=== PATIENT | male | born 1950 | race Caucasian/White ===

== ENCOUNTER 2017-11-28 13:47 | Emergency (ER) | payer MEDICARE, OTHER ==
[~2017-11-28] VITALS: Ht 175.3 cm; Wt 79.5 kg
[~2017-11-28 13:47] MED LIST: ADLT ASA LOW81 MG; ALLOPURINOL100 MG OR; AMIODARONE200 MG PO; AMOXICILLIN500 MG OR; AUGMENTIN875TAB OR; AUGMENTIN875TAB PO; CEFTIN500 MG PO; CIPRO500 MG PO; COREG6.25 MG PO; COUMADIN3 MG; DIGOXIN0.125 MG; FUROSEMIDE40 MG PO; HYDROCHLORO25 MG/TAB PO; LASIX20 MG PO; LIPITOR20 MG PO; LISINOPRIL20 MG PO; LOSARTAN POT50 MG PO; MEDDOSEPAK OR; METOPROL TAR50 MG PO; METOPROLOL TART50 MG OR; METOPROLOL50 M1 OR; PLAVIX75 MG PO; POTASSIUM CHLO10 MEQ PO; PRILOSEC20 MG/CAP; PROAIR HFA IN; QVAR40 MCG IN; SIMVASTATIN80 MG OR; SM ASPIRIN81 MG OR; SYMBICORT1 AE1 IN; TRAMADOL HCL50 MG PO; ZESTRIL/PRINIV2.5 MG PO; ZOCOR PO
[2017-11-28] MEDS ORDERED: BUMETANIDE1 MG PO (14:49)
[2017-11-28] MEDS ORDERED: LEVOTHYROXIN125 MCG PO (14:50)
[2017-11-28] MEDS ORDERED: METOPROL TAR25 MG PO (14:51)
[2017-11-28] MEDS ORDERED: ENTRESTO 24-261 TAB PO (14:51)
[2017-11-28 15:01] LABS: HEMOGLOBIN 15.3 g/dl (14.0-18.0); IMMATURE GRANULOCYTES 0.3 % (0.0-1.0); MEAN CELL VOLUME 97.1 fL CALC (80.0-100.0); MEAN CORPUSCULAR HGB 31.6 pG CALC (26.0-32.0); MEAN CORPUSCULAR HGB CONC 32.6 g/L CALC (32.0-36.0); NEUT# 4.48 thou/uL (1.82-7.42); RED BLOOD COUNT 4.84 mill/uL (4.70-6.10); RED CELL DISTRI WIDTH 14.6 % (11.5-15.5)
[2017-11-28 15:21] LABS: ALBUMIN 4.1 g/dL (3.2-5.0); ALKALINE PHOSPHATASE 60 u/l (38-126); ANION GAP 10 (6-22 (CALC)); BILIRUBIN, TOTAL 0.9 mg/dL (0.0-1.4); BUN 18 mg/dL (8-23); BUN/CREATININE RATIO 17 (12-20 (CALC)); CARBON DIOXIDE 34 mmol/l (22-30); CHLORIDE 100 mmol/l (95-108); GFR > 60 ML/MIN (>=60 (CALC)); GFR FOR AFR.AMER. > 60 ML/MIN (>=60 (CALC)); POTASSIUM 3.5 mmol/l (3.5-5.1); SGOT/AST 25 u/l (19-48); SGPT/ALT 29 u/l (11-66); SODIUM 139 mmol/l (137-146); TOTAL PROTEIN 7.7 g/dL (6.3-8.2)
[2017-11-28 16:16] VITALS: BP 111/61
== END 2017-11-28 16:20 | disposition home or self-care (01) ==
LOC: ED 13:47
PROVIDERS: Emergency Medicine
DX: I49.9 Cardiac arrhythmia, unspecified (principal); R42 Dizziness and giddiness; Z95.5 Presence of coronary angioplasty implant and graft; Z95.810 Presence of automatic (implantable) cardiac defibrillator; Z95.0 Presence of cardiac pacemaker; Y93.89 Activity, other specified; Y92.89 Other specified places as the place of occurrence of the external cause; I25.2 Old myocardial infarction; B19.20 Unspecified viral hepatitis C without hepatic coma; I48.91 Unspecified atrial fibrillation; I25.5 Ischemic cardiomyopathy; I10 Essential (primary) hypertension

== ENCOUNTER 2018-03-19 16:46 | Emergency (ER) | payer MEDICARE, OTHER ==
[~2018-03-19] VITALS: Ht 175.3 cm; Wt 84.0 kg
[~2018-03-19 16:46] MED LIST changes: +BUMETANIDE1 MG PO; +ENTRESTO 24-261 TAB PO; +LEVOTHYROXIN125 MCG PO; +METOPROL TAR25 MG PO
[2018-03-19 17:41] LABS: HEMATOCRIT 48.5 % (39.0-50.0); HEMOGLOBIN 15.7 g/dl (14.0-18.0); IMMATURE GRANULOCYTES 0.4 % (0.0-5.0); MEAN CORPUSCULAR HGB 31.7 pG CALC (26.0-32.0); MEAN CORPUSCULAR HGB CONC 32.4 g/L CALC (32.0-36.0); NEUT# 8.1 thou/uL (1.82-7.42); RED BLOOD COUNT 4.95 mill/uL (4.70-6.10); RED CELL DISTRI WIDTH 15.4 % (11.5-15.5)
[2018-03-19 17:57] LABS: ALBUMIN 4.2 g/dL (3.2-5.0); ANION GAP 17 (6-22 (CALC)); BILIRUBIN, TOTAL 1.3 mg/dL (0.0-1.4); BUN 27 mg/dL (8-23); BUN/CREATININE RATIO 22 (12-20 (CALC)); CARBON DIOXIDE 31 mmol/l (22-30); CHLORIDE 93 mmol/l (95-108); CREATININE 1.3 mg/dL (0.7-1.3); GFR 55 ML/MIN (>=60 (CALC)); GFR FOR AFR.AMER. > 60 ML/MIN (>=60 (CALC)); LIPASE 82 u/l (23-300); POTASSIUM 3.8 mmol/l (3.5-5.1); SGOT/AST 43 u/l (19-48); SODIUM 137 mmol/l (137-146)
[2018-03-19] MEDS ORDERED: BUMETANIDE1 MG PO (17:57)
[2018-03-19 18:00] LABS: ALKALINE PHOSPHATASE 94 u/l (38-126)
[2018-03-19] MEDS ORDERED: LASIX 40 MG TAB40 MG PO (18:37)
[2018-03-19 18:48] VITALS: BP 127/80
== END 2018-03-19 18:48 | disposition home or self-care (01) ==
LOC: ED 16:46
PROVIDERS: Family Medicine
DX: I50.9 Heart failure, unspecified (principal); R60.1 Generalized edema; K74.60 Unspecified cirrhosis of liver; F17.290 Nicotine dependence, other tobacco product, uncomplicated; I10 Essential (primary) hypertension; Z95.810 Presence of automatic (implantable) cardiac defibrillator

== ENCOUNTER 2018-05-26 11:33 | Emergency (ER) | payer MEDICARE, OTHER ==
[~2018-05-26] VITALS: Ht 175.3 cm; Wt 70.0 kg
[~2018-05-26 11:33] MED LIST changes: +ALLOPURINOL300 MG PO; +COMBIVENT RESPIMAT IN; +FLONASE AL50 MCG/ACT; +LASIX 40 MG TAB40 MG PO; +METOLAZONE2.5 MG PO; +METOPROL TAR25 M1 PO; +SLOW-MAG PO
[2018-05-26 12:13] LABS: HEMATOCRIT 43.5 % (39.0-50.0); HEMOGLOBIN 14.2 g/dl (14.0-18.0); IMMATURE GRANULOCYTES 0.3 % (0.0-5.0); MEAN CELL VOLUME 97.3 fL CALC (80.0-100.0); MEAN CORPUSCULAR HGB 31.8 pG CALC (26.0-32.0); MEAN CORPUSCULAR HGB CONC 32.6 g/L CALC (32.0-36.0); NEUT# 5.98 thou/uL (1.82-7.42); RED BLOOD COUNT 4.47 mill/uL (4.70-6.10); RED CELL DISTRI WIDTH 16.5 % (11.5-15.5)
[2018-05-26 12:31] LABS: ALBUMIN 4.1 g/dL (3.2-5.0); ALKALINE PHOSPHATASE 74 u/l (38-126); ANION GAP 13 (6-22 (CALC)); BILIRUBIN, TOTAL 1.8 mg/dL (0.0-1.4); BUN 27 mg/dL (8-23); BUN/CREATININE RATIO 20 (12-20 (CALC)); CARBON DIOXIDE 31 mmol/l (22-30); CHLORIDE 95 mmol/l (95-108); CREATININE 1.3 mg/dL (0.7-1.3); ETHYL ALCOHOL 0 mg/dl (0-30); GFR 55 ML/MIN (>=60 (CALC)); GFR FOR AFR.AMER. > 60 ML/MIN (>=60 (CALC)); MAGNESIUM 1.9 mg/dL (1.6-2.3); POTASSIUM 3.5 mmol/l (3.5-5.1); SGOT/AST 36 u/l (19-48); SODIUM 136 mmol/l (137-146); TOTAL PROTEIN 7.9 g/dL (6.3-8.2)
[2018-05-26 12:42] LABS: MYOGLOBIN 118 ng/mL (0 - 121)
[2018-05-26 14:25] VITALS: BP 100/68
== END 2018-05-26 14:25 | disposition short-term general hospital (02) ==
LOC: ED 11:33
DX: I47.2 Ventricular tachycardia (principal); I10 Essential (primary) hypertension; J44.9 Chronic obstructive pulmonary disease, unspecified; I25.10 Atherosclerotic heart disease of native coronary artery without angina pectoris; B19.20 Unspecified viral hepatitis C without hepatic coma; F17.290 Nicotine dependence, other tobacco product, uncomplicated; S00.83XA Contusion of other part of head, initial encounter; W18.39XA Other fall on same level, initial encounter; Y92.009 Unspecified place in unspecified non-institutional (private) residence as the place of occurrence of the external cause; Z95.1 Presence of aortocoronary bypass graft; Z95.5 Presence of coronary angioplasty implant and graft; Z95.2 Presence of prosthetic heart valve; Z95.810 Presence of automatic (implantable) cardiac defibrillator
CPT/HCPCS: J0282

== ENCOUNTER 2018-06-24 12:40 | Inpatient (IN) | payer MEDICARE, OTHER ==
[~2018-06-24] VITALS: Ht 175.3 cm; Wt 90.9 kg
[2018-06-24 13:15] VITALS: BP 99/70
[2018-06-24 13:30] VITALS: BP 95/68
[2018-06-24 13:33] LABS: HEMATOCRIT 32.3 % (39.0-50.0); HEMOGLOBIN 10.7 g/dl (14.0-18.0); IMMATURE GRANULOCYTES 0.6 % (0.0-5.0); MEAN CELL VOLUME 95.6 fL CALC (80.0-100.0); MEAN CORPUSCULAR HGB 31.7 pG CALC (26.0-32.0); MEAN CORPUSCULAR HGB CONC 33.1 g/L CALC (32.0-36.0); NEUT# 6.97 thou/uL (1.82-7.42); RED BLOOD COUNT 3.38 mill/uL (4.70-6.10); RED CELL DISTRI WIDTH 15.3 % (11.5-15.5)
[2018-06-24 13:45] LABS: ALBUMIN 3.9 g/dL (3.2-5.0); BILIRUBIN, TOTAL 1.2 mg/dL (0.0-1.4); POTASSIUM 3.2 mmol/l (3.5-5.1)
[2018-06-24 14:15] LABS: TSH, 3RD GENERATION 10.2 uIU/mL (0.47 - 4.68)
[2018-06-24 15:00] VITALS: BP 90/63
[2018-06-24] MEDS ORDERED: COREG3.125 MG PO (15:51)
[2018-06-24] MEDS ORDERED: METOLAZONE2.5 MG PO (15:56)
[2018-06-24] MEDS ORDERED: VENTOLIN HFA IN (15:58)
[2018-06-24] MEDS ORDERED: BUMETANIDE1 MG PO (16:03)
[2018-06-24] MEDS ORDERED: XARELTO10 MG PO (16:05)
[2018-06-24] MEDS ORDERED: CORDARONE/200 MG/TAB PO (16:07)
[2018-06-24] MEDS ORDERED: OCEAN NASAL0.65 % NAB (16:08)
[2018-06-24] MEDS ORDERED: STOOL SOFTENER100 MG PO (16:09)
[2018-06-24] MEDS ORDERED: PEPTO-BISM524 MG/30 PO (16:10)
[2018-06-24 16:59] LABS: URINE BILIRUBIN - DIPSTICK NEGATIVE (NEGATIVE); URINE BLOOD DIPSTICK NEGATIVE (NEGATIVE); URINE COLOR YELLOW; URINE GLUCOSE - DIPSTICK NEGATIVE (NEGATIVE); URINE KETONE NEGATIVE (NEGATIVE); URINE LEUK ESTERASE NEGATIVE (NEGATIVE); URINE NITRITE - DIPSTICK NEGATIVE (Negative); URINE PROTEIN - DIPSTICK NEGATIVE (NEG-TRACE); URINE SPECIFIC GRAVITY 1.015; URINE UROBILINOGEN - DIPSTICK 0.2 E.U./dL (0.2)
[2018-06-24 17:00] VITALS: BP 97/70
[2018-06-24 19:20] VITALS: BP 105/61
== END 2018-06-24 19:45 | disposition short-term general hospital (02) | DRG 291 ==
LOC: ICU 12:40
PROVIDERS: ADMIT Internal Medicine; ATTEND Internal Medicine Nephrology
PROC: 0BH17EZ Insertion of Endotracheal Airway into Trachea, Via Natural or Artificial Opening (ICD-10-PCS; principal; 2018-06-24)
PROC: 5A1935Z Respiratory Ventilation, Less than 24 Consecutive Hours (ICD-10-PCS; 2018-06-24)
PROC: 02HV33Z Insertion of Infusion Device into Superior Vena Cava, Percutaneous Approach (ICD-10-PCS; 2018-06-24)
DX: I13.0 Hypertensive heart and chronic kidney disease with heart failure and stage 1 through stage 4 chronic kidney disease, or unspecified chronic kidney disease (principal); I50.23 Acute on chronic systolic (congestive) heart failure; J96.00 Acute respiratory failure, unspecified whether with hypoxia or hypercapnia; E87.1 Hypo-osmolality and hyponatremia; N17.9 Acute kidney failure, unspecified; N18.3 Chronic kidney disease, stage 3 (moderate); I25.5 Ischemic cardiomyopathy; I25.10 Atherosclerotic heart disease of native coronary artery without angina pectoris; E78.5 Hyperlipidemia, unspecified; E87.5 Hyperkalemia; D63.1 Anemia in chronic kidney disease; B19.20 Unspecified viral hepatitis C without hepatic coma; Z95.1 Presence of aortocoronary bypass graft; Z95.810 Presence of automatic (implantable) cardiac defibrillator; Z86.74 Personal history of sudden cardiac arrest; Z95.5 Presence of coronary angioplasty implant and graft; Z87.891 Personal history of nicotine dependence

== ENCOUNTER 2018-07-25 17:34 | Emergency (ER) | payer MEDICARE, OTHER ==
[~2018-07-25] VITALS: Ht 175.3 cm; Wt 75.0 kg
[~2018-07-25 17:34] MED LIST changes: +CORDARONE/200 MG/TAB PO; +COREG3.125 MG PO; +OCEAN NASAL0.65 % NAB; +PEPTO-BISM524 MG/30 PO; +STOOL SOFTENER100 MG PO; +VENTOLIN HFA IN; +XARELTO10 MG PO
[2018-07-25 18:34] LABS: HEMATOCRIT 31.6 % (39.0-50.0); HEMOGLOBIN 9.7 g/dl (14.0-18.0); MEAN CORPUSCULAR HGB 28.9 pG CALC (26.0-32.0); MEAN CORPUSCULAR HGB CONC 30.7 g/L CALC (32.0-36.0); NEUT# 10.35 thou/uL (1.82-7.42); RED BLOOD COUNT 3.36 mill/uL (4.70-6.10); RED CELL DISTRI WIDTH 18.1 % (11.5-15.5)
[2018-07-25 18:48] LABS: PROTHROMBIN TIME 21.1 SECONDS (9.0-12.5)
[2018-07-25 18:53] LABS: ALBUMIN 4.2 g/dL (3.2-5.0); BILIRUBIN, TOTAL 1.7 mg/dL (0.0-1.4); DIRECT BILIRUBIN 0.1 mg/dl (0.0-0.3); TOTAL PROTEIN 7.8 g/dL (6.3-8.2)
[2018-07-25 18:54] LABS: CREATININE 3.7 mg/dL (0.7-1.3); POTASSIUM 4.7 mmol/l (3.5-5.1)
[2018-07-25] MEDS ORDERED: [UNRECOGNIZED DRUG - MIXTURE] IV (19:11)
[2018-07-25] MEDS ORDERED: POLY-IRON150 MG PO (19:11)
[2018-07-25] MEDS ORDERED: AMIODARONE200 MG PO (19:12)
[2018-07-25] MEDS ORDERED: MIDODRINE10 MG PO (19:12)
[2018-07-25] MEDS ORDERED: TORSEMIDE20 M1 PO (19:12)
[2018-07-25] MEDS ORDERED: LIPITOR80 M1 PO (19:13)
[2018-07-25] MEDS ORDERED: DOCUSATE SOD100 MG PO (19:13)
[2018-07-25] MEDS ORDERED: ASPIRIN81 MG PO (19:13)
[2018-07-25] MEDS ORDERED: LEVOTHYROXIN150 MCG PO (19:14)
[2018-07-25] MEDS ORDERED: PANTOPRAZOLE SO40 MG PO (19:14)
[2018-07-25] MEDS ORDERED: SPIRONOLACT25 MG PO (19:15)
[2018-07-25] MEDS ORDERED: XARELTO10 MG PO (19:15)
[2018-07-25] MEDS ORDERED: PROAIR HFA108 MCG/AC IN (19:15)
[2018-07-25 20:08] VITALS: BP 104/75
== END 2018-07-25 20:08 | disposition short-term general hospital (02) ==
LOC: ED 17:34
PROVIDERS: Family Medicine
DX: I50.9 Heart failure, unspecified (principal); I42.9 Cardiomyopathy, unspecified; N19 Unspecified kidney failure; M19.90 Unspecified osteoarthritis, unspecified site; Z95.810 Presence of automatic (implantable) cardiac defibrillator; Z95.2 Presence of prosthetic heart valve; R06.02 Shortness of breath; R63.5 Abnormal weight gain; R33.9 Retention of urine, unspecified